=== PATIENT | female | born 1970 | race Caucasian/White ===

== ENCOUNTER 2023-11-17 07:58 | Day surgery (SDC) | payer BC ==
[~2023-11-17 07:58] MED LIST: Sodium Chloride 0.9% 10 ML Syringe FLUSH PRN; Sodium Chloride 0.9% 10 ML Syringe FLUSH SCH
[2023-11-17] MEDS ORDERED: Gabapentin 600 MG Tab PO ONE (08:00)
[2023-11-17] MEDS: Celecoxib 100 MG Cap PO ONE (08:16)
[2023-11-17] MEDS: Phenazopyridine 95 MG Tab PO ONE (08:16)
[2023-11-17] MEDS: Lactated Ringers 1,000 ML IV SCH (08:20)
[2023-11-17] MEDS: Gabapentin 300 MG Cap PO ONE ×2 (08:20→08:37)
[2023-11-17] MEDS: Acetaminophen 325 MG Tab PO ONE (08:20)
[2023-11-17 08:37] LABS: BASOPHILS PERCENT AUTO 0.6 % (0.0-1.0); EOSINOPHILS ABSOLUTE AUTO 0.1 K/mm3 (0.0-0.4); EOSINOPHILS PERCENT AUTO 2.3 % (0.0-6.0); HEMATOCRIT 40.9 % (37.0-47.0); HEMOGLOBIN 14.3 gm/dl (12.0-16.0); IMMATURE GRAN ABSOLUTE AUTO 0.01 K/mm3 (0.00-0.05); IMMATURE GRAN PERCENT AUTO 0.2 % (0.0-0.4); LYMPHOCYTES ABSOLUTE AUTO 1.5 K/mm3 (1.0-4.8); LYMPHOCYTES PERCENT AUTO 31.6 % (24.0-44.0); MEAN CORPUSCULAR VOLUME 91.5 fl (83.0-99.0); MEAN PLATELET VOLUME 9.6 fl (9.4-12.3); MONOCYTES ABSOLUTE AUTO 0.5 K/mm3 (0.0-0.8); MONOCYTES PERCENT AUTO 9.6 % (0.0-8.0); NEUTROPHILS ABSOLUTE AUTO 2.6 K/mm3 (1.8-7.7); NEUTROPHILS PERCENT AUTO 55.7 % (41.0-71.0); PLATELET COUNT,PLT 298 K/mm3 (150-400); RED BLOOD CELL COUNT 4.47 M/mm3 (4.10-5.30); WHITE BLOOD CELL COUNT,WBC 4.69 K/mm3 (3.9-11.3)
[2023-11-17] MEDS ORDERED: Ondansetron 4 MG/2 ML SDV IVPUSH PRN ×2 (08:39→11:00)
[2023-11-17] MEDS ORDERED: fentaNYL 100 MCG/2 ML SDV IVPUSH PRN ×2 (08:39→11:00)
[2023-11-17] MEDS ORDERED: HYDROmorphone 0.5 MG/0.5 ML Syringe IVPUSH PRN ×2 (08:39→11:00)
[2023-11-17 08:57] LABS: ANION GAP 13.7 (5-15); BUN/CREATININE RATIO 13.8 (14-18); CALCIUM 9.2 mg/dL (8.5-10.1); CREATININE 0.8 mg/dL (0.55-1.02); EST CRCL DRUG DOSING (CG) 63.03 mL/min; POTASSIUM,K 3.7 mEq/L (3.5-5.1)
[2023-11-17] MEDS ORDERED: fentaNYL 250 MCG/5 ML SDV ONE (09:20)
[2023-11-17] MEDS ORDERED: Midazolam 1 MG/ML 2 ML SDV ONE (09:20)
[2023-11-17] MEDS ORDERED: Propofol 200 MG/20 ML SDV ONE (09:20)
[2023-11-17] MEDS ORDERED: Ketorolac 30 MG/ML SDV ONE (09:20)
[2023-11-17] MEDS ORDERED: dexmedeTOMIDine HCl 200 MCG/2 ML SDV ONE (09:20)
[2023-11-17] MEDS ORDERED: Rocuronium 50 MG/5 ML Vial ONE (09:20)
[2023-11-17] MEDS ORDERED: Sugammadex Sodium 200 MG/2 ML VIAL IV ONE (09:20)
[2023-11-17] MEDS ORDERED: Lidocaine 1% 5 ML VIAL ONE (09:20)
[2023-11-17] MEDS ORDERED: Dexamethasone 4 MG/ML 5 ML MDV ONE (09:20)
[2023-11-17] MEDS ORDERED: ceFAZolin 2 GM Vial ONE (09:21)
[2023-11-17] MEDS ORDERED: Sodium Chloride 0.9% 100 ML ONE (09:24)
[2023-11-17] MEDS: Lidocaine 1% with EPINEPHrine 1:100,000 20 ML MDV ONE (10:00)
[2023-11-17] MEDS ORDERED: Ondansetron 4 MG/2 ML SDV ONE (10:24)
[2023-11-17] MEDS ORDERED: Lactated Ringers 1,000 ML IV ONE (10:35)
[2023-11-17] MEDS: oxyCODONE 5 MG Tab PO PRN (12:00)
== END 2023-11-17 13:40 | disposition home or self-care (01) ==
LOC: JD.SDS 07:58
PROVIDERS: ATTEND Obstetrics & Gynecology
DX: C54.1 Malignant neoplasm of endometrium (principal); N87.9 Dysplasia of cervix uteri, unspecified; L57.0 Actinic keratosis; G89.18 Other acute postprocedural pain; Z79.899 Other long term (current) drug therapy
CPT/HCPCS: 36415; 58262; 80048; 85025; 86850; 86900; 86901; A9270; J0690; J1100; J1885; J2250; J2405; J2704; J3010; J3490; J7120; 00944